=== PATIENT | male | born 1965 | race Caucasian/White ===

== ENCOUNTER 2020-06-22 07:13 | Emergency (ER) | payer OTHER ==
[2020-06-22 07:19] VITALS: RESP 18; TEMP 98
[2020-06-22] MEDS ORDERED: FLUORESCEIN STRIPS 1 MG STRIP LEFT EYE STA (07:45)
[2020-06-22] MEDS ORDERED: PROPARACAINE 0.5% OPHTH DROPS 15 ML BTL LEFT EYE STA (07:45)
--- NOTE | 2020-06-22 07:56 | ED ---
General Adult HPI - General Chief complaint: Eye Problems Stated complaint: ENT Time Seen by Provider: 06/22/20 07:19 Source: patient, RN notes reviewed Mode of arrival: ambulatory Limitations: no limitations - History of Present Illness Initial comments: 54 -year-old male presents to the emergency department for left eye irritation. Patient reports he woke up around 3 in the morning and his left eye was irritated. He thought he had an eyelash in it but this morning it worsened. 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 Patient denies any visual changes. Denies any other injuries.Patient has no other complaints at this time including shortness of breath, chest pain, abdominal pain, nausea or vomiting, headache, or visual changes. - Related Data Previous Rx's Medication Instructions Recorded Erythromycin Ophth Oint [Romycin 1 applic LEFT EYE QID 7 Days #10 gm 06/22/20 Ophth Oint] Allergies Allergy/AdvReac Type Severity Reaction Status Date / Time No Known Allergies Allergy Verified 06/22/20 07:18 Review of Systems ROS Statement: Those systems with pertinent positive or pertinent negative responses have been documented in the HPI. ROS Other: All systems not noted in ROS Statement are negative. Past Medical History Past Medical History: No Reported History History of Any Multi-Drug Resistant Organisms: None Reported Past Surgical History: Appendectomy Past Psychological History: No Psychological Hx Reported Smoking Status: Never smoker Past Alcohol Use History: None Reported Past Drug Use History: None Reported General Exam Limitations: no limitations General appearance: alert Head exam: Present: atraumatic Eye exam: Present: normal appearance, PERRL, EOMI, conjunctival injection (Left, mild). Absent: scleral icterus Expanded Eyelids: Normal Inspection: Bilateral Pupils: Regular, Round: Bilateral Sclera/Conjunctival: Normal Inspection: Right, Injection: Left Visual acuity (R) = 20/: 30 Visual acuity (L) = 20/: 30 With correction: No ENT exam: Present: normal exam, mucous membranes moist Neck exam: Present: normal inspection, full ROM. Absent: tenderness Respiratory exam: Present: normal lung sounds bilaterally. Absent: respiratory distress, wheezes Cardiovascular Exam: Present: regular rate, normal rhythm, normal heart sounds. Absent: bradycardia Neurological exam: Present: alert Course Vital Signs 06/22/20 07:16 Temperature 98 F Pulse Rate 59 L Respiratory 18 Rate Blood Pressure 151/88 O2 Sat by Pulse 98 Oximetry Medical Decision Making - Medical Decision Making Vitals are stable. Patient is well-appearing although does have irritation of the left adjunctiva. EOMI. There is no evidence of foreign body in the conjunctiva or under the eyelids which I flipped. Visual acuity 20/30 OU. No visual changes. Proparacaine was applied which completely alleviated patient's symptoms. Fluorescein was used in conjunction with [place] lamp. There is abrasion noted across Center of patient's conjunctiva. Tetanus is arty up to date. Patient was started on erythromycin. He does not wear contacts. At this time patient be discharged home. I will give him ophthalmology follow-up. He will return here for any worsening symptoms. I discussed this case with attending Dr. Bradley who agrees with this assessment and treatment plan. Disposition Clinical Impression: Corneal abrasion, left Disposition: HOME SELF-CARE Condition: Good Instructions (If sedation given, give patient instructions): Corneal Abrasion (ED) Additional Instructions: Please apply antibiotic ointment 4 times per day for 7 days. Follow up with ophthalmology. If symptoms are worsening or not improving return to the emergency room. Prescriptions: Erythromycin Ophth Oint [Romycin Ophth Oint] 1 applic LEFT EYE QID 7 Days #10 gm Is patient prescribed a controlled substance at d/c from ED?: No Referrals: Ayla Thurston MD [Primary Care Provider] - 1-2 days Cory Moreno MD [STAFF PHYSICIAN] - 1-2 days Time of Disposition: 08:13
[2020-06-22] MEDS ORDERED: ERYTHROMYCIN 5 MG/GM OPHTH OINT 1 GM TUBE LEFT EYE STA (08:13)
[2020-06-22 08:44] VITALS: BP 128/89; PULSE 67
== END 2020-06-22 08:43 | disposition home or self-care (01) ==
LOC: EC 07:13
DX: S05.02XA Injury of conjunctiva and corneal abrasion without foreign body, left eye, initial encounter (principal); Z90.49 Acquired absence of other specified parts of digestive tract; X58.XXXA Exposure to other specified factors, initial encounter
CPT/HCPCS: 99283